=== PATIENT | male | born 1960 | race Caucasian/White ===

== ENCOUNTER 2017-04-08 08:43 | Emergency (ER) | payer BC ==
[~2017-04-08] VITALS: Ht 182.9 cm; Wt 98.7 kg
[2017-04-08] MEDS ORDERED: LISINOPRIL10 MG PO (08:57)
[2017-04-08] MEDS ORDERED: CHANTIX1 EACH PO (08:57)
[2017-04-08] MEDS ORDERED: METOPROLOL SUCC50 MG PO (08:58)
[2017-04-08] MEDS ORDERED: HYDROCHLOROTH12.5 M3 PO (08:58)
[2017-04-08] MEDS ORDERED: FLEXERIL10 MG PO (09:29)
[2017-04-08] MEDS ORDERED: NAPROXEN500 MG PO (09:29)
[2017-04-08] MEDS ORDERED: LIDODERM 5% P1 PATCH TD (09:29)
[2017-04-08 09:52] VITALS: BP 130/95
== END 2017-04-08 09:55 | disposition home or self-care (01) ==
LOC: EME 08:43
DX: S39.012A Strain of muscle, fascia and tendon of lower back, initial encounter (principal); X50.9XXA Other and unspecified overexertion or strenuous movements or postures, initial encounter; X50.1XXA Overexertion from prolonged static or awkward postures, initial encounter; I10 Essential (primary) hypertension; F17.200 Nicotine dependence, unspecified, uncomplicated
CPT/HCPCS: 99281; 99283; J1885